=== PATIENT | male | born 1970 | race Two or more races ===

== ENCOUNTER 2021-12-05 21:33 | Emergency (ER) | payer OTHER ==
[~2021-12-05] VITALS: Ht 182.9 cm; Wt 79.4 kg
[2021-12-05 21:49] VITALS: BP 134/86
[2021-12-05 22:37] LABS: BASOPHILS % (AUTO) 0.5 % (0.0-2.0); EOSINOPHILS % (AUTO) 2.6 % (0.0-6.0); HEMATOCRIT 41 % (39-51); LYMPHOCYTES # (AUTO) 1.2 K/uL (0.8-4.8); LYMPHOCYTES % (AUTO) 28.4 % (20.0-44.0); MEAN CORPUSCULAR HGB CONC 34 g/dl (31.0-36.0); MEAN CORPUSCULAR VOLUME 100 fL (80-96); MONOCYTES # (AUTO) 0.6 K/uL (0.1-1.30); MONOCYTES % (AUTO) 13.4 % (2.0-12.0); NEUTROPHILS # (AUTO) 2.4 K/uL (1.8-8.9); NEUTROPHILS % (AUTO) 55.1 % (43.0-81.0); PLATELET COUNT (AUTO) 105 K/uL (150-450); RED BLOOD CELL COUNT(AUTO) 4.13 MIL/uL (4.5-6.0); WHITE BLOOD COUNT (AUTO) 4.3 K/uL (4.3-11.0)
[2021-12-05 22:45] LABS: CALCIUM, SERUM 8.4 mg/dL (8.5-10.1); CREATININE 0.7 mg/dL (0.6-1.3); POTASSIUM 3.6 mmol/L (3.5-5.1)
[2021-12-06] MEDS ORDERED: LEVO50TA8 PO (02:53)
[2021-12-06] MEDS ORDERED: OXCA150T5 PO (02:53)
[2021-12-06] MEDS ORDERED: POTA20TA83 PO (02:53)
[2021-12-06] MEDS ORDERED: HYDR-4279 PO (02:53)
[2021-12-06] MEDS ORDERED: TRAZ-182 PO (02:53)
[2021-12-06] MEDS ORDERED: ENOX40DI SQ (02:53)
[2021-12-06] MEDS ORDERED: CARV3.122 PO (02:53)
[2021-12-06] MEDS ORDERED: HYDR50TA61 PO (02:53)
[2021-12-06] MEDS ORDERED: CRAN425C6 PO (02:53)
[2021-12-06] MEDS ORDERED: FURO40TA5 PO (02:53)
[2021-12-06] MEDS ORDERED: LATA2.5D2 OP (02:53)
[2021-12-06] MEDS ORDERED: IPRA3AMP22 IH (02:53)
[2021-12-06] MEDS ORDERED: LOSA25TA27 PO (02:53)
[2021-12-06] MEDS ORDERED: L. A1CAP11 PO (02:53)
[2021-12-06] MEDS ORDERED: ATOR10TA PO (02:53)
[2021-12-06] MEDS ORDERED: ACET325T53 MC (02:53)
[2021-12-06] MEDS ORDERED: AMIO200T5 PO ×2 (02:53)
[2021-12-06] MEDS ORDERED: CRAN3875 PO (02:53)
[2021-12-06] MEDS ORDERED: PANT40TA2 PO (02:53)
== END 2021-12-05 23:15 | disposition home or self-care (01) ==
LOC: ER 21:36
DX: F10.229 Alcohol dependence with intoxication, unspecified (principal); R07.89 Other chest pain; Z60.2 Problems related to living alone; Y90.9 Presence of alcohol in blood, level not specified
CPT/HCPCS: 36415; 71045-TC; 80048-TC; 84484-TC; 85025-TC